=== PATIENT | male | born 1965 | race African-American/Black ===

== ENCOUNTER 2019-12-06 05:43 | Day surgery (SDC) | payer OTHER ==
[~2019-12-06] VITALS: Ht 182.9 cm; Wt 95.5 kg
[~2019-12-06 05:43] MED LIST: ATOR10TA60 PO; CHLO4TAB20 PO; DICL50TA4 PO; DOXY100C2 PO; DULO20CA PO; GUAI200T3 PO; HYDR30CR74 RC; LISI-334 PO; TRAZ-123 PO
[2019-12-06] MEDS ORDERED: ONDANSETRON PF 4 MG/2 ML VIAL. IV PRN (07:00)
[2019-12-06] MEDS ORDERED: MORPHINE SULFATE 2 MG/ML VIAL. IV PRN (07:00)
[2019-12-06] MEDS ORDERED: HYDROmorphone 2 MG/ML VIAL IV PRN (07:00)
[2019-12-06] MEDS ORDERED: fentaNYL PF VIAL 100 MCG/2 ML VIAL IV PRN (07:00)
[2019-12-06] MEDS ORDERED: PROCHLORPERAZINE 10 MG/2 ML VIAL. IV PRN (07:00)
[2019-12-06] MEDS ORDERED: IV RINGERS,LACTATED 1000ML 1,000 ML IV SCH (07:00)
[2019-12-06] MEDS ORDERED: LIDOCAINE 1% PF 2 ML VIAL. ID PRN (07:00)
[2019-12-06] MEDS ORDERED: BUPIVACAINE-EPI 0.5%-1:200000 MPF 30 ML VIAL. ONE (07:26)
[2019-12-06] MEDS ORDERED: SEVOFLURANE 61 TO 120 MINUTES. IH ONE (07:39)
[2019-12-06] MEDS ORDERED: fentaNYL PF VIAL 100 MCG/2 ML VIAL ONE ×3 (07:39→10:04)
[2019-12-06] MEDS ORDERED: MIDAZOLAM HCL/PF 2 MG/2 ML VIAL. ONE (07:39)
[2019-12-06] MEDS ORDERED: ONDANSETRON PF 4 MG/2 ML VIAL. ONE (07:40)
[2019-12-06] MEDS ORDERED: KETOROLAC 30 MG/ML VIAL. ONE (07:40)
[2019-12-06] MEDS ORDERED: DEXAMETHASONE SOD PHOS 4 MG/ML VIAL ONE ×2 (07:40)
[2019-12-06] MEDS ORDERED: PROPOFOL 20 ML IV ONE (07:40)
[2019-12-06] MEDS ORDERED: LIDOCAINE 2% PF 5 ML VIAL. ONE (07:40)
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
[2019-12-06] MEDS ORDERED: GLYCOPYRROLATE 1 MG/5 ML VIAL. ONE (08:33)
[2019-12-06] MEDS ORDERED: ESMOLOL 100 MG/10 ML VIAL. IVP ONE (08:44)
[2019-12-06] MEDS: fentaNYL PF VIAL 100 MCG/2 ML VIAL IV PRN ×3 (09:25→10:06)
--- NOTE | 2019-12-06 09:29 | DISCH ---
DISCHARGE INSTRUCTIONS Condition on Discharge Condition on Discharge: Stable Activity After Discharge Activity Instructions for Disc: Activity as tolerated, Avoid exertion Lifting Instructions after Dis: No heavy lifting Diet after Discharge Diet after Discharge: Regular Wound Incision Care Wound/Incision Care: Ice to area for comfort Other wound/incision instructi: january showfriday Follow-Up Follow up with: Sonu CALHOUN office two weeks RICKEY PALUMBO MD Dec 06, 2019 09:29
--- NOTE | 2019-12-06 09:34 | PDOC ---
BRIEF OPERATIVE NOTE Date: Dec 06, 2019 Pre-Op Diagnosis right inguinal hernia Post-Op Diagnosis same, indirect Procedure Performed repair with mesh Surgeon Sonu Anesthesia Type: General (LMA) Blood Loss 10cc IV Fluid 900cc Specimens Obtained none Findings large indirect hernia, adequate floor Complications none Operative Note Wk # [id number] RICKEY PALUMBO MD Dec 06, 2019 09:34
--- NOTE | 2019-12-06 09:40 | OP ---
DATE OF SURGERY: 12/06/2019 PREOPERATIVE DIAGNOSIS: Right inguinal hernia. POSTOPERATIVE DIAGNOSIS: Right inguinal hernia, indirect. PROCEDURE: Repair with mesh. SURGEON: Rickey Palumbo MD ANESTHESIA: General LMA. ESTIMATED BLOOD LOSS: 10 mL. INTRAVENOUS FLUIDS: 900 mL. DESCRIPTION OF PROCEDURE: The patient brought to the operating suite, given a general LMA and the right groin was prepped and draped in usual sterile fashion. A 0.5% Marcaine with epinephrine was infiltrated along the incision line. Incision made and dissection carried down to the external oblique fascia. Bleeders were cauterized or tied as identified. The fascia was opened in the direction of its fibers, extended through the external ring. Cord swept off the pubis. Lincoln drain placed around it and dissection carried back to the internal ring where a large indirect sac was identified, skeletonized and reduced. This was held in reduction with a large plug of Phasix mesh, tacked with 2-0 PDS, taking care to avoid injury to adjacent vessels. A keyhole patch was fashioned and placed over the floor of the canal. The slit closed with a single 2-0 PDS stitch and the area checked for hemostasis. When present and a correct sponge count was obtained, the cord was returned to its normal anatomical position. External oblique fascia closed over a running fashion with 3-0 Vicryl. Subcutaneous tissue approximated with 3-0 Vicryl, skin closed with a subcuticular 4-0 Monocryl. Steri-Strips and sterile dressing applied. Prior to emergence from anesthesia, digital rectal exam failed to reveal evidence of prostatic enlargement or nodularity. The patient was awakened from his anesthetic and taken to the recovery room in satisfactory condition. RICKEY PALUMBO MD DR: ASTRID/hossein JOB#: [id number] / [id number]
[2019-12-06] MEDS ORDERED: PROCHLORPERAZINE 10 MG/2 ML VIAL. ONE (09:49)
[2019-12-06 09:55] VITALS: BP 153/100
[2019-12-06] MEDS ORDERED: fentaNYL PF VIAL 100 MCG/2 ML VIAL IV ONE (10:30)
[2019-12-06] MEDS ORDERED: fentaNYL PF VIAL 100 MCG/2 ML VIAL IM ONE (10:30)
== END 2019-12-06 10:40 | disposition home or self-care (01) ==
LOC: SURG 05:43 → EEVIPCON 08:00 → SURG 10:40
PROVIDERS: ATTEND Surgery
DX: K40.90 Unilateral inguinal hernia, without obstruction or gangrene, not specified as recurrent (principal); I10 Essential (primary) hypertension; F41.9 Anxiety disorder, unspecified; E78.5 Hyperlipidemia, unspecified; Z87.39 Personal history of other diseases of the musculoskeletal system and connective tissue; Z87.891 Personal history of nicotine dependence; Z86.19 Personal history of other infectious and parasitic diseases; Z98.890 Other specified postprocedural states; F32.9 Major depressive disorder, single episode, unspecified
CPT/HCPCS: 49505; C1781; J0696; J0780; J1100; J2001; J2250; J2405; J2704; J3010; J3490; J7120; J1885